=== PATIENT | male | born 1990 | race African-American/Black ===

== ENCOUNTER 2023-08-08 09:36 | Emergency (ER) | payer OTHER, SELFPAY ==
--- NOTE | 2023-08-08 09:38 | ED.GENMED ---
History of Present Illness
General
Chief Complaint: Psychiatric Problem
Time Seen by Provider: 08/08/23 09:38
History of Present Illness
History of Present Illness:
HPI: Patient presents to the ER with police. He resides at an apartment complex. He presents under 302 evaluation by psychiatrist. The note reads that he has not showered in approximately 2 years and has become very malodorous. The patient
denies any significant symptoms. The patient tells me that he showered a few weeks ago and uses the sink to wash himself a few times a week.
EXAM:
GENERAL: The patient appears somewhat poorly groomed, very long fingernails noted
HEENT: Moist oral mucosa
CARDIOVASCULAR: No murmurs, normal heart rate and rhythm, No chest wall tenderness
PULMONARY: No respiratory distress, breath sounds are clear and equal
ABDOMEN: Soft with no peritoneal signs, no tenderness
NEUROLOGIC: Excellent strength all extremities, no coordination deficits
PSYCHIATRIC: He knows the month and knows he is at [facility] but otherwise has somewhat limited insight and does not quite understand why he is here
EXTREMITIES: Nontender, no edema, moves all extremities equally
SKIN: No rash, no lesions
ED COURSE:
9:45 AM: I initially evaluated
NUMBER AND COMPLEXITY OF PROBLEMS ADDRESSED AT THE ENCOUNTER
� Chronic conditions affecting care: Schizophrenia on lithium
� Acute Exacerbation and/or Progression of Chronic Illness: The timing of this is unclear
� Differential Diagnosis includes: Failure to thrive, dehydration, medication noncompliance, schizophrenia
AMOUNT AND/OR COMPLEXITY OF DATA TO BE REVIEWED AND ANALYZED
� I performed an independent evaluation of and my interpretation is:
EKG:
CT:
X-rays:
Laboratory Studies: CBC normal, chemistries unremarkable, GFR over 60, B12, folate, TSH all normal, lithium level low at 0.4
Other:
� Review of other/old records: I reviewed notes from the facility which indicate the patient was homeless
� Clinical information was obtained by an independent historian: I spoke to police and reviewed the 302
� Prescriptions/Medications Considered but not given:
� Further testing considered but not performed:
RISK OF COMPLICATIONS AND/OR MORBIDITY OR MORTALITY OF PATIENT MANAGEMENT
� Social determinants of health affecting care: Lives at [facility]
� Discussion with other providers: I spoke to Dr. Paiz who ordered labs, planning discharge
� Escalation of care including admission/observation vs risk of discharge considered: The patient is fairly well-appearing with unremarkable vital signs and labs, he does not appear to be a imminent threat to himself or others.
There has been delay in disposition as Dr. Paiz wanted patient to further paperwork allowing further care at the facility that he is at. Still awaiting either Dr. Paiz or crisis to assist with this.
Phy Exam
Physical Exam
Physical Exam:
See HPI
Course
Orders/Labs/Results
Orders:
Orders
08/08/23 10:39
Complete Blood Count/With Diff Urgent
Comprehensive Metabolic Panel Urgent
Folate Urgent
[place] Urgent
TSH Reflex To Free T4 Urgent
Vitamin B12 Urgent
Abnormal Lab Results
08/08/23
10:39
BUN 5 L mg/dl
(9-20)
[place] 0.4 L mmol/L
(0.6-1.2)
08/08/23 10:39
08/08/23 10:39
Vital Signs
Initial and Last Documented VS:
Initial Vital Signs
Pulse Resp BP Pulse Ox
68 18 130/96 96
08/08/23 09:59 08/08/23 09:59 08/08/23 09:59 08/08/23 09:59
Last Documented Vital Signs
Pulse Resp BP Pulse Ox
68 18 130/96 96
08/08/23 09:59 08/08/23 09:59 08/08/23 09:59 08/08/23 09:59
*Critical Care Note
Total Time (30-74mins, 75-104mins- exclusive of procedures): Not Applicable
ED Attending Note
-
Portions of this chart may have been created with voice recognition software.� Occasional wrong word or��sound alike� substitutions may have occurred due to the inherent limitations of voice recognition software.
Discharge Plan
Departure
Patient Disposition: Home (Routine Discharge)
Date of Disposition: 08/08/23
Time of Disposition: 12:21
Patient with high blood pressure during this ER visit?: Yes
Discharge Problem:
Adult failure to thrive
Instructions: Schizophrenia (DC)
Referrals:
UNKNOWN,NO INTERVIEW [Family Provider] -
Activity Restrictions/Additional Instructions:
Follow-up as recommended by [facility]/psychiatry
Interventions
Interventions:
*Risk Screen - Suicide Last Done: 08/08/23 10:03
*General Assessment Last Done: 08/08/23 10:03
*Neglect/Abuse Screening Last Done: 08/08/23 10:03
ED- Fall Risk Assessment Last Done: 08/08/23 10:03
*ED COVID-19 Vaccine History Last Done: 08/08/23 10:03
*Nursing Disposition Last Done: 08/08/23 15:30
ED-Psychological Assessment Last Done: 08/08/23 15:31
Discharge Date and Time
Discharge Date/Time: 08/08/23 15:31
[2023-08-08 09:59] VITALS: BP 130/96
[2023-08-08 10:53] LABS: % Basophils 1.2 % (0-2); % Eosinophils 1.9 % (0-6); % Immature Granulocytes 0.2 % (0-0.5); % Lymphocytes 23.9 % (20.5-51.1); % Monocytes 4.4 % (1.7-9.3); % Neutrophils 68.4 % (42.2-75.2); Absolute Basophils 0.1 10^3/uL (0-0.2); Absolute Eosinophils 0.1 10^3/uL (0-0.7); Absolute Lymphocytes 1.2 10^3/uL (1.2-3.4); Absolute Monocytes 0.2 10^3/uL (0.1-0.6); Absolute Neutrophils 3.5 10^3/uL (1.4-6.5); Hemoglobin 16.2 g/dL (13.0-18.0); Mean Corp Hgb Conc. 33.8 g/dL (33.0-37.0); Mean Corpuscular Hgb 28.4 pg (27.0-31.0); Mean Corpuscular Volume 84.1 fL (80.0-94.0); Nucleated Red Blood Cells % 0 % (-); Platelet Count 274 10^3/uL (130-400); Red Blood Cell Count 5.71 10^6/uL (4.70-6.10); White Blood Cell Count 5.2 10^3/uL (4.8-10.8)
[2023-08-08 11:03] LABS: ALT (SGPT) 13 U/L (0-50); AST (SGOT) 23 U/L (17-59); Albumin 4.7 g/dl (3.5-5.0); Alkaline Phosphatase 75 U/L (38-126); Blood Urea Nitrogen 5 mg/dl (9-20); Carbon Dioxide 30 mmol/L (22-30); Chloride 103 mmol/L (98-107); Glucose 94 mg/dl (70-99); Lithium 0.4 mmol/L (0.6-1.2); Potassium 4.6 mmol/L (3.5-5.1); Sodium 138 mmol/L (135-145); Total Protein 7.7 g/dl (6.3-8.2); eGFR > 60.00
--- NOTE | 2023-08-08 11:11 | CON.MD ---
Consultation - Medical
-
patient seen chart reviewed. this case was discussed with nursing and with dr vargas. the patient is a 33 year old who resides in a [facility] appartment. his meds are prescribed by the [facility] act team and he reportedly takes lithium and zyprexa.
i am awaiting a list of his current meds and doses. i did speak to ms axel dale who oversees the [facility]. apparently there is some disagreement as to how to handle monica's case. lvf feel a guardian is necessary as monica needs a higher
level of care with more supervision in his living arrangement but he is not willing to sign for it. they also feel that coordination of his care would be helpful (meaning [facility] act prescribing as he lives in [facility] housing). they do not necessarily
agree that hospital is advised. the 302 alleges he is not performing adls and that body odor is offending residents and staff alike. not showering 'for two years' not cutting finger nails for two years. 'very thin' not willing to do medical
care. eating ' food' bedroom trashed. cig smoking is a fire hazard and he has disabled smoke detectors does not participate in programming and refuses to sign documents. he allowed us to do bloodwork which is perfect so far b12 and
folate pending. he is not malnourished. lithium level is 0.4 will be obtaining height and weight. monica was pleasant and cooperative in this interview. he gives no reason for not showering. he says he does eat although acknowledges he has lost
some weight but also says he was overweight in the past. he is not suicidal. he did not appear to be hallucinating. he did not threaten others. he said he takes lithium and olanzapine though did not know dosages.
past psych hx monica has been hospitalized in the past. he remembers being in a hospital in [place] and at [facility]. see above re current rx inquired of [facility] staff what is IQ they suspect borderline intellect but no documentation
medical labs all wnl. will get height and weight. awaiting list of meds. he denies ongoing medical illnesses.
social resides in [facility] housing. he does have family in [place]
mse alert ox3 cooperative pleasant. disheveled. i could not detect an odor but other staff have. his fingernails are long but not curling . thought process seemed goal oriented but patient was not very talkative speech nl rate and tone. denies
hallucinations intelligence may be borderline insight judgment lacking
dx schizophrenia
recommendations i did try to call dr lindo at [phone] but got only voice mail. while i acknowledge patient needs to improve adls and requires more supervision for safety eg smoking is a fire risk i cannot say he is an imminent danger to self
and others and i don't really see what a hospitalization would accomplish as long as he is taking meds. he seems to me to be what we would have called in the past chronic undifferentiated schizophrenia. i think he would be better served in a higher
level of care reliving situation. crr and under [facility] prescribing since he lives in [facility] housing. i will not uphold the 302. will see if we can get him to sign some paperwork that would be needed to achieve aforementioned goals.
[2023-08-08 11:35] LABS: TSH Reflex To Free T4 1.07 uIU/ml (0.47-4.68)
[2023-08-08 11:37] VITALS: BMI 22.3
[2023-08-08 12:08] LABS: Folate 9.5 ng/ml (2.76-20); Vitamin B12 381 pg/ml (239-931)
--- NOTE | 2023-08-08 12:36 | PTCARENOTE ---
pt ordered lunch, pt is calm will continue to monitor.
== END 2023-08-08 15:31 | disposition home or self-care (01) ==
LOC: EMR 09:36
PROVIDERS: EMERGENCY PHYSICIAN Emergency Medicine; OTHER PHYSICIAN Psychiatry & Neurology Psychiatry
DX: R62.7 Adult failure to thrive (principal); F20.9 Schizophrenia, unspecified; Z79.899 Other long term (current) drug therapy
CPT/HCPCS: 99284; 80053; 80178; 82607; 82746; 84443; 85025

== ENCOUNTER 2024-09-04 23:54 | Inpatient (IN) | payer OTHER, SELFPAY ==
[2024-09-04 20:36] VITALS: BP 136/74
[2024-09-04] MEDS: NSS 1000 IV ×3 (20:36→23:33)
[2024-09-04 20:40] VITALS: BP 136/74
--- NOTE | 2024-09-04 20:47 | ED.GENMED ---
History of Present Illness
General
Chief Complaint: Unresponsive
Source: ambulance crew
Exam Limitations: altered mental status
Time Seen by Provider: 09/04/24 20:36
Nursing documentation reviewed up to this point in time: agreed with
History of Present Illness
History of Present Illness:
34-year-old male from a senior care presents with mental status change, apparently he does not shower very often, reluctant to take his meds, his special education supervisor at the facility states there is no drug or alcohol history, apparently refused to take his
lithium and Seroquel for 2 days but did take them this evening, no overdose reportedly, EMS reports him being being somnolent tachycardic with small pupils given Narcan with some improvement of his mental status, when I saw him he is tachycardic 2
to 3 mm OU no overt signs of trauma felt warm had a rectal temp was normal very malodorous,
Past History
Past History
ED Past Medical History: Psychiatric
Social History
Tobacco: Non-smoker
Alcohol: None
Drug: None
Personal: Single
Living: other
Employment: Other
Family History
Family History: Unable to obtain
Phy Exam
Physical Exam
Physical Exam:
Physical Exam
General: Minimally responsive malodorous -[place]
Neck: Pupils 3 mm OU
Heart: Tachycardic
Lungs: no acute respiratory distress. clear bilaterally
Abdomen: Nontender
Neuro: Responds to deep painful stimuli
Skin: no rash
Psychiatric: Unable to assess
Extremities: no edema
Course
Orders/Labs/Results
Orders:
Orders
09/04/24 20:36
EKG [Electrocardiogram (*1)] Urgent
Reason for Study: Tachycardia
Electrocardiogram (*1) Urgent
Reason for Study: Other
Other Reason for Exam: sepsis
EKG- Treatment ONCE
EKG- Treatment ONCE
Urinalysis Reflex To Culture Urgent
0.9% Sodium Chloride 1000 ml [Nss] 1,000 ml IV BOLUS
CR Chest Portable - 1 View Urgent
Comment:
Reason For Exam: stupor
Reason Study Needs to be Portable: Patient Unstable
09/04/24 20:37
Urine Drug Abuse Screen Urgent
09/04/24 20:38
CT Head W/o Iv Contrast Urgent
Comment:
Reason For Exam: coma
09/04/24 20:46
Add On- LAB Urgent
Tests Added?: [place]
09/04/24 20:55
Acetaminophen Urgent
Alcohol Urgent
COVID-19 Antigen Urgent
Source: Nasal Swab
CPK [Creatine Phosphokinase] Urgent
Complete Blood Count/With Diff Urgent
Comprehensive Metabolic Panel Urgent
Glycohemoglobin (HgbA1c) Urgent
Lactic Acid Q4H
Comment: CANCEL 2nd LACTIC ACID IF 1st LACTIC ACID IS LESS THAN 2
[place] Urgent
Comment: ADD ON
Salicylate Urgent
Influenza A+B Rapid Molecular Urgent
GISSELLE Source: Nasal Swab
Specimen Description:
09/04/24 21:01
Blood Culture Q30M
GISSELLE Source: Blood/Venous
Specimen Description:
Blood Culture Q30M
GISSELLE Source: Blood/Venous
Specimen Description:
09/04/24 21:31
0.9% Sodium Chloride 1000 ml [Nss] 1,000 ml IV BOLUS
09/04/24 21:32
0.9% Sodium Chloride 1000 ml [Nss] 1,000 ml IV BOLUS
KCl 40 Meq/100 ml [KCl] 40 meq in 100 ml IV NOW
09/04/24 21:48
Add On- LAB Urgent
Tests Added?: hemoglobin aic
09/04/24 21:59
Arterial Blood Gas Urgent
%Oxygen/Room Air: ra
09/05/24 00:45
Lactic Acid Q4H
Comment: CANCEL 2nd LACTIC ACID IF 1st LACTIC ACID IS LESS THAN 2
Abnormal Lab Results
09/04/24
20:55
Absolute Neuts (auto) 7.2 H 10^3/uL
(1.4-6.5)
Absolute Monos (auto) 0.7 H 10^3/uL
(0.1-0.6)
Neutrophils % 77.4 H %
(42.2-75.2)
Lymphocytes % 14.5 L %
(20.5-51.1)
Sodium 133 L mmol/L
(135-145)
Potassium 3.0 L mmol/L
(3.5-5.1)
Glucose 254 H mg/dl
(70-99)
Lactic Acid 2.8 H mmol/L
(0.7-2.0)
Creatine Kinase 260 H U/L
(55-170)
Salicylates < 1.0 L mg/dl
(2.0-20.0)
Acetaminophen < 10 L ug/ml
(10-30)
[place] 0.4 L mmol/L
(0.6-1.2)
09/04/24 20:55
09/04/24 20:55
Vital Signs
Initial and Last Documented VS:
Initial Vital Signs
Pulse Resp Pulse Ox
158 22 97
09/04/24 20:32 09/04/24 20:32 09/04/24 20:32
Last Documented Vital Signs
Temp Pulse Resp BP Pulse Ox
98.3 F 116 15 162/86 98
09/04/24 20:40 09/04/24 21:30 09/04/24 21:30 09/04/24 21:00 09/04/24 21:30
MDM/Problems Addressed
Differential Diagnosis Includes:
Overdose intoxication infection primary psychiatric dehydration thyroid
MDM/Problems Addressed:
Mental status change
Chronic conditions affecting care: Psychiatric illness
Acute Exacerbation and/or Progression of Chronic Illness: Psychiatric illness
*Radiology
Radiology exam reviewed: preliminary read by ED provider
*Pulse Oximetry
Patient hypoxic: no
*EKG
Interpreted by ED Provider?: Yes
Interpretation: abnormal
Comparison EKG: no comparison EKG present
Heart Rate: 150
Rate: tachycardiac
Rhythm: sinus
Ischemia: non-specific ST changes
*Audio Visual Secretary Interpretation
Rate: tachycardiac
Interpretation: abnormal
Heart Rate: 150
Rhythm: sinus
*Critical Care Note
Total Time (30-74mins, 75-104mins- exclusive of procedures): 30
ED Attending Note
-
Portions of this chart may have been created with voice recognition software.� Occasional wrong word or��sound alike� substitutions may have occurred due to the inherent limitations of voice recognition software.
Discharge Plan
Departure
Prescriptions:
No Action
quetiapine 300 mg tablet
300 mg PO BID
olanzapine 10 mg tablet
10 mg PO DAILY
lithium carbonate 450 mg tablet extended release
450 mg PO DAILY
Interventions
Interventions:
*Risk Screen - Suicide Last Done: 09/04/24 20:46
*General Assessment Last Done: 09/04/24 20:49
*Neglect/Abuse Screening Last Done: 09/04/24 20:46
*ED- Fall Risk Assessment Last Done: 09/04/24 20:46
*ED COVID-19 Vaccine History Last Done: 09/04/24 20:46
ED- Neurological Assessment Last Done: 09/04/24 20:46
Discharge Date and Time
Print Language: AZERBAIJANI
[2024-09-04 21:00] VITALS: BP 162/86
[2024-09-04 21:10] LABS: % Basophils 0.5 % (0-2); % Eosinophils 0.1 % (0-6); % Immature Granulocytes 0.3 % (0-0.5); % Lymphocytes 14.5 % (20.5-51.1); % Monocytes 7.2 % (1.7-9.3); % Neutrophils 77.4 % (42.2-75.2); Absolute Basophils 0.1 10^3/uL (0-0.2); Absolute Lymphocytes 1.3 10^3/uL (1.2-3.4); Absolute Monocytes 0.7 10^3/uL (0.1-0.6); Absolute Neutrophils 7.2 10^3/uL (1.4-6.5); Hematocrit 44.5 % (39.0-52.0); Hemoglobin 15.2 g/dL (13.0-18.0); Mean Corp Hgb Conc. 34.2 g/dL (33.0-37.0); Mean Corpuscular Hgb 28.5 pg (27.0-31.0); Mean Corpuscular Volume 83.5 fL (80.0-94.0); Mean Platelet Volume 10.4 fL (7.4-10.4); Nucleated Red Blood Cells % 0 % (-); Platelet Count 255 10^3/uL (130-400); Red Blood Cell Count 5.33 10^6/uL (4.70-6.10); Red Cell Dist. Width 12.9 % (11.5-14.5); White Blood Cell Count 9.3 10^3/uL (4.8-10.8)
[2024-09-04 21:19] LABS: COVID-19 Antigen Negative (Negative)
[2024-09-04 21:25] LABS: ALT (SGPT) 14 U/L (0-50); AST (SGOT) 19 U/L (17-59); Acetaminophen < 10 ug/ml (10-30); Alkaline Phosphatase 79 U/L (38-126); Blood Urea Nitrogen 10 mg/dl (9-20); Calcium 9.3 mg/dl (8.4-10.2); Carbon Dioxide 22 mmol/L (22-30); Chloride 98 mmol/L (98-107); Creatine Phosphokinase 260 U/L (55-170); Glucose 254 mg/dl (70-99); Lactic Acid 2.8 mmol/L (0.7-2.0); Lithium 0.4 mmol/L (0.6-1.2); Salicylate < 1.0 mg/dl (2.0-20.0); Sodium 133 mmol/L (135-145); Total Bilirubin 0.9 mg/dl (0.2-1.3); Total Protein 6.5 g/dl (6.3-8.2); eGFR > 60.00
[2024-09-04 21:27] LABS: Alcohol None Detected
[2024-09-04 22:00] VITALS: BP 138/92
--- NOTE | 2024-09-04 22:28 | ED.GENMED ---
History of Present Illness
General
Chief Complaint: Unresponsive
Time Seen by Provider: 09/04/24 20:36
Past History
Past History
ED Past Medical History: Psychiatric
Social History
Tobacco: Non-smoker
Alcohol: None
Drug: None
Personal: Single
Living: other
Employment: Other
Family History
Family History: Unable to obtain
Course
Orders/Labs/Results
Orders:
Orders
09/04/24 20:36
EKG [Electrocardiogram (*1)] Urgent
Reason for Study: Tachycardia
Electrocardiogram (*1) Urgent
Reason for Study: Other
Other Reason for Exam: sepsis
EKG- Treatment ONCE
EKG- Treatment ONCE
Urinalysis Reflex To Culture Urgent
0.9% Sodium Chloride 1000 ml [Nss] 1,000 ml IV BOLUS
CR Chest Portable - 1 View Urgent
Comment:
Reason For Exam: stupor
Reason Study Needs to be Portable: Patient Unstable
09/04/24 20:37
Urine Drug Abuse Screen Urgent
09/04/24 20:38
CT Head W/o Iv Contrast Urgent
Comment:
Reason For Exam: coma
09/04/24 20:46
Add On- LAB Urgent
Tests Added?: [place]
09/04/24 20:55
Acetaminophen Urgent
Alcohol Urgent
COVID-19 Antigen Urgent
Source: Nasal Swab
CPK [Creatine Phosphokinase] Urgent
Complete Blood Count/With Diff Urgent
Comprehensive Metabolic Panel Urgent
Glycohemoglobin (HgbA1c) Urgent
Lactic Acid Q4H
Comment: CANCEL 2nd LACTIC ACID IF 1st LACTIC ACID IS LESS THAN 2
[place] Urgent
Comment: ADD ON
Salicylate Urgent
Influenza A+B Rapid Molecular Urgent
GISSELLE Source: Nasal Swab
Specimen Description:
09/04/24 21:01
Blood Culture Q30M
GISSELLE Source: Blood/Venous
Specimen Description:
Blood Culture Q30M
GISSELLE Source: Blood/Venous
Specimen Description:
09/04/24 21:31
0.9% Sodium Chloride 1000 ml [Nss] 1,000 ml IV BOLUS
09/04/24 21:32
0.9% Sodium Chloride 1000 ml [Nss] 1,000 ml IV BOLUS
KCl 40 Meq/100 ml [KCl] 40 meq in 100 ml IV NOW
09/04/24 21:48
Add On- LAB Urgent
Tests Added?: hemoglobin aic
09/05/24 00:45
Lactic Acid Q4H
Comment: CANCEL 2nd LACTIC ACID IF 1st LACTIC ACID IS LESS THAN 2
Abnormal Lab Results
09/04/24
20:55
Absolute Neuts (auto) 7.2 H 10^3/uL
(1.4-6.5)
Absolute Monos (auto) 0.7 H 10^3/uL
(0.1-0.6)
Neutrophils % 77.4 H %
(42.2-75.2)
Lymphocytes % 14.5 L %
(20.5-51.1)
Sodium 133 L mmol/L
(135-145)
Potassium 3.0 L mmol/L
(3.5-5.1)
Glucose 254 H mg/dl
(70-99)
Lactic Acid 2.8 H mmol/L
(0.7-2.0)
Creatine Kinase 260 H U/L
(55-170)
Salicylates < 1.0 L mg/dl
(2.0-20.0)
Acetaminophen < 10 L ug/ml
(10-30)
[place] 0.4 L mmol/L
(0.6-1.2)
09/04/24 20:55
09/04/24 20:55
Vital Signs
Initial and Last Documented VS:
Initial Vital Signs
Pulse Resp Pulse Ox
158 22 97
09/04/24 20:32 09/04/24 20:32 09/04/24 20:32
Last Documented Vital Signs
Temp Pulse Resp BP Pulse Ox
98.3 F 98 14 138/92 99
09/04/24 20:40 09/04/24 22:15 09/04/24 22:15 09/04/24 22:00 09/04/24 22:15
Update Note
Update Note:
10:20 PM patient still sleepy arouses to attempted ABG, moves all extremities
ED Attending Note
-
Portions of this chart may have been created with voice recognition software.� Occasional wrong word or��sound alike� substitutions may have occurred due to the inherent limitations of voice recognition software.
Discharge Plan
Departure
Patient Disposition: Admit
Date of Disposition: 09/04/24
Time of Disposition: 22:29
Admit to: Med/Surg and Telemetry
Presentation/result/management discussed w/ accepting MD/DO: Hospitalist
Patient with high blood pressure during this ER visit?: No
Condition: Fair
Covid-19: Not Applicable
Discharge Problem:
Acute delirium
Prescriptions:
No Action
quetiapine 300 mg tablet
300 mg PO BID
olanzapine 10 mg tablet
10 mg PO DAILY
lithium carbonate 450 mg tablet extended release
450 mg PO DAILY
Interventions
Interventions:
*Risk Screen - Suicide Last Done: 09/04/24 20:46
*General Assessment Last Done: 09/04/24 20:49
*Neglect/Abuse Screening Last Done: 09/04/24 20:46
*ED- Fall Risk Assessment Last Done: 09/04/24 20:46
*ED COVID-19 Vaccine History Last Done: 09/04/24 20:46
ED- Neurological Assessment Last Done: 09/04/24 20:46
Discharge Date and Time
Print Language: KHMER
[2024-09-04 23:00] VITALS: BP 137/85
--- NOTE | 2024-09-04 23:03 | HPS.HSE ---
Family Physician
-
Family Physician:
Chief Complaint
-
encephalopathy
History of Present Illness
34-year-old male with past medical history signal for bipolar disorder on lithium, Seroquel and olanzapine will presents from home via family with altered mental status.
Patient is arousable but unable to provide any history. He currently lives in a correction with a he apparently is usually by himself. It is noted that he does not shower very often, he is reluctant to take his medications, there is no history of
drug or alcohol use according to facilities about myself. He apparently has been refusing to take his lithium and Seroquel for 2 days but apparently took them this evening. No overdose noted.
EMS reports that he was somnolent and tachycardic on arrival with constricted pupils. He was given Narcan with some improvement in mental status. No other history obtainable.
In ED he was tachycardic to the 130s. Blood pressure was 138/92. Was satting 99% on room air. His chest x-ray was clear. CT of the head showed no acute intracranial process. CBC was unremarkable. Electrolytes notable for a potassium of 3.0 but
otherwise unremarkable. Glucose 250. He had elevated lactic acid to 2.8, CK was elevated to 280.
Drug screen for salicylate acetaminophen and alcohol was negative. [place] level was not therapeutic.
Urine tox is not available at this time.
Medical History
Past Medical History
Past Medical History: Reports Other (Bipolar disorder)
Past Surgical History: Reports None
Social History
Unable to obtain full social history at this time due to: Patient Non-verbal
Family History
Family History: Not pertinent
Allergies / Home Medications
Allergies reflects when Allergies were last updated in [employer].
Home Medications with original date entered in [employer]
Allergy/Medication List:
Allergies
Allergy/AdvReac Type Severity Reaction Status Date / Time
No Known Allergies Allergy Unverified 02/16/24 11:34
Home Medications
lithium carbonate 450 mg tablet,extended release 450 mg PO DAILY 09/04/24
olanzapine 10 mg tablet 10 mg PO DAILY 09/04/24
quetiapine 300 mg tablet 300 mg PO BID 09/04/24
Review of Systems
-
Unable to obtain full review of systems at this time due to: Patient Non-verbal
Physical Exam
Vital Signs
Vital Signs
Temp Pulse Resp BP Pulse Ox
98.3 F 98 14 138/92 99
09/04/24 20:40 09/04/24 22:15 09/04/24 22:15 09/04/24 22:00 09/04/24 22:15
Physical Exam
General: No Apparent Distress
HEENT: NormoCephalic, Anicteric, Moist mucous membranes, Atraumatic, No Ptosis, Nose Appears Normal, Ears Appear Normal and Neck Nontender; No Pharyngeal Erythema or Neck Mass
Respiratory: Clear
Cardiac: S1/S2 and Tachycardia
Breast: Deferred by me
GI: Soft, Non Tender, Non Distended and Normal Bowel Sounds
Rectal: Deferred by Provider
Genito-urinary: No costovertebral tender
Musculoskeletal: No Clubbing, No Cyanosis and No Edema
Skin: Warm
Neuro: Other (somnolent, arousable to loud sound or to touch then immediately goes back to sleep. GCS = 9. Can keep limbs elevated if raised. Seemed to have some tetany on movement.)
Laboratory Results
-
09/04/24 20:55
09/04/24 20:55
Laboratory Results
pH Cancelled 09/04/24 21:59
pCO2 Cancelled 09/04/24 21:59
pO2 Cancelled 09/04/24 21:59
HCO3 Cancelled 09/04/24 21:59
Lactic Acid 2.8 mmol/L (0.7-2.0) H 09/04/24 20:55
Total Bilirubin 0.9 mg/dl (0.2-1.3) 09/04/24 20:55
AST 19 U/L (17-59) 09/04/24 20:55
ALT 14 U/L (0-50) 09/04/24 20:55
Alkaline Phosphatase 79 U/L (38-126) 09/04/24 20:55
Data Reviewed
-
Diagnostic Radiology: Image Personally Visualized and interpreted
CT Scan: Report Reviewed by me
Medical Tests (Nuc Med, Echo, EKG etc): Image Personally Visualized and interpreted
Old Records: Reviewed
Impression/Plan
-
IMPRESSION:
34 y.o with h/o bipolar d/o comes from correction with altered mental status and tachycardia. No history obtained from patient. Per correction stopped taking medications for the last 2 days and history of reluctance to take meds or perform ADLs.
No h/o drug abuse and per supervisor phosphatic fertilizer no etoh history. Drug leves are non-toxic here and no etoh in system. CT head negative. Chest clear. Viral panel negative. Hypo K and hyponatremia with elevated lactic acid levels.
PLAN:
1. Obtundation - Patient is protecting airways and has good gag reflex. Easily aroused to voice and touch. RR 16. Normal oxygenation. Negative serum drug screen. Unlikely post-ictal but cannot rule out (elevated lactate and cpk) vs
non-convulsive epilepsy
- admit to imu
- continue monitoring on tele with continuos pulse oximetry and capnography
- urine drug screen
- check d-dimer
- mri and eeg in am
- checking tsh, b12,
- neurology consultation
2. Electrolyte abnormalities- Suspect secondary to dehydration.
- s/p K repletion
- continue with IV thiamine/folate/NS
3. Hyperglycemia
- a1c pending
- check lipid panel
- sliding scale insulin for now
DVT PPX - lovenox sq
Code status - Full code
[2024-09-04] MEDS: KCL 270 MEQ IV (23:30)
[2024-09-05] VITALS (11 sets, daily range): BP systolic 78–164; BP diastolic 31–119; BMI 19.9
[2024-09-05] LABS: Urine Albumin Negative (Neg - Trace); Urine Bilirubin Negative (Negative); Urine Character Clear (Clear); Urine Color Yellow; Urine Glucose 2+ (Negative); Urine Ketone 1+ (Negative); Urine Leukocyte Negative (Negative); Urine Nitrite Negative (Negative); Urine Occult Blood Negative (Negative); Urine Specific Gravity 1.015 (<1.030); Urine Urobilinogen Negative (Neg - 1+)
[2024-09-05 00:09] LABS: D-Dimer 0.36 ug/mlFEU (0.00-0.50)
[2024-09-05 00:42] LABS: Amphetamines Negative (Negative); Barbiturates Negative (Negative); Benzodiazepines Negative (Negative); Buprenorphine Negative (Negative); Cocaine Negative (Negative); Marijuana Negative (Negative); Methadone Negative (Negative); Methamphetamines Negative (Negative); Opiates Negative (Negative); Phencyclidine Negative (Negative); Tricyclic Antidepressants Positive (Negative)
[2024-09-05 01:16] LABS: Lactic Acid 1.1 mmol/L (0.7-2.0)
[2024-09-05] MEDS: MULTIVITAMIN 1011 MG IV (01:24)
[2024-09-05] MEDS: MULTIVITAMIN 1011 ML IV (01:24)
[2024-09-05 02:45] LABS: Glucose - Point of Care 101 mg/dl (70-99)
[2024-09-05] MEDS: KCL 160 MEQ IV (02:51)
[2024-09-05 05:46] LABS: Glucose - Point of Care 121 mg/dl (70-99)
--- NOTE | 2024-09-05 06:08 | PTCARENOTE ---
Received pt from ED RN. Pt nods his head yes/no to some questions, nonverbal at this time. Unable to do admission questions. NSR on the monitor. On RA O2 sat 99%, lungs clear. Unable to assess pt feet, pt becomes restless/agitated when feet are
touched. Pt went tachy into the 140s, RR 60s, restless, then had a blank stare for a couple of seconds and VS stabilized, RADHA Butler notified. CHG bath provided. 1:1 at bedside. Safe environment maintained.
[2024-09-05 06:51] LABS: Hematocrit 43.9 % (39.0-52.0); Hemoglobin 14.7 g/dL (13.0-18.0); Mean Corp Hgb Conc. 33.5 g/dL (33.0-37.0); Mean Corpuscular Hgb 28.4 pg (27.0-31.0); Mean Corpuscular Volume 84.9 fL (80.0-94.0); Mean Platelet Volume 10.3 fL (7.4-10.4); Platelet Count 253 10^3/uL (130-400); Red Blood Cell Count 5.17 10^6/uL (4.70-6.10); White Blood Cell Count 7.2 10^3/uL (4.8-10.8)
[2024-09-05 06:58] LABS: Ammonia 14 umol/L (9-30)
[2024-09-05 07:06] LABS: Blood Urea Nitrogen 4 mg/dl (9-20); Calcium 9.3 mg/dl (8.4-10.2); Chloride 108 mmol/L (98-107); Creatine Phosphokinase 1362 U/L (55-170); Estimated Creatinine Clearance > 125 ml/min; Glucose 96 mg/dl (70-99); HDL Cholesterol 50 mg/dl; Magnesium 2.1 mg/dl (1.6-2.3); Potassium 3.7 mmol/L (3.5-5.1); Sodium 140 mmol/L (135-145); Triglyceride 58 mg/dl (10-149); Very Low Density Lipoprotein 11 mg/dl (0-30); eGFR > 60.00
[2024-09-05 07:13] LABS: Carbon Dioxide 23 mmol/L (22-30)
[2024-09-05 07:22] LABS: LDL Cholesterol, Calculated 37 mg/dl; Total Cholesterol 98 mg/dl (50-199)
[2024-09-05 07:35] LABS: TSH 2.11 uIU/ml (0.47-4.68)
[2024-09-05 07:54] LABS: Vitamin B12 290 pg/ml (239-931)
[2024-09-05 08:20] LABS: Glycohemoglobin (HgbA1c) 5.5 % (4.0-5.6)
--- NOTE | 2024-09-05 10:08 | CM ---
Addendum entered by Cassi Savage 09/05/24 14:35:
CM spoke with Dr. Ferrell and Dr. Mosquera, new 302 completed and delegate provided time of warrant as 2:05pm. CM will need to fax updated 302 for hearing if needed on Friday, hearing request must be in before . Original to chart and copy in
CM office. CM will continue to follow for discharge planning needs.
Addendum entered by Cassi Savage 09/05/24 11:35:
CM updated Yasmine Bunch that patient was OBS at this time, and reviewed implications.
Addendum entered by Cassi Savage 09/05/24 11:20:
CM received a call back from it network administrator Yasmine Bunch,of act at [facility] [phone]. Per it network administrator patient had a 302 started yesterday and it was upheld by the delegate but when patient reached the medical floor the 302 was discharged.
Patient has been in the apartment since his release from the [facility] and he has not bathed in 3 years per it network administrator. Patient needs higher level of care per admin. Patient may have an ID but has never been tested due to psychosis. Patient
has a sister who has not given a release to [facility] and admin was not able to release name/phone number. Per admin sister has not been involved with patient care for a long time. Patient typically was eating only pizza and hot dogs from [employer] and
he would ride his bike to the store. Since 08/17/24 patient has not opened his door to see the staff or allowed them to give him his medicine. According to admin when the curtain supervisor arrived last night with the 302 he did open the door and took his
medicine, after which he was almost immediately sick and the staff called 911. Patient is very afraid of police and admin indicated that patient is very frail. Admin to come to see patient tomorrow in am and will come to the CM office to review
options. CM will update curtain supervisor and continue to follow for discharge planning needs.
Original Note:
Patient seen at bedside. Patient not answering CM questions. CM called to home phone number. Person answering phone indicated that they were caregivers for 12 hours daily and that ms. Fiorella Dexter is the curtain supervisor and they work for [facility], [place] # [phone]. Patient PCP is not known by the caregiver but she stated that [facility] is the pharmacy [phone]. Patient caregiver states that patient is normally talkative and able to communicate his needs. Patient does like his
'space' per caregiver. Patient has a POA and caregiver but the information would be available from Ms. Dexter. CM will leave a VM for curtain supervisor and request call back. CM will attempt to update curtain supervisor of patient status as OBS. CM will continue
to follow for discharge planning needs.
Plan; home with aides/VN vs SNF; watch for clarification of patient prior status and needs.
--- NOTE | 2024-09-05 10:14 | CS.PSYCHR ---
Addendum entered and electronically signed by Indu Smith DO 09/05/24 11:53:
Chart reviewed and case discussed with crisis. Evidently the 302 petition completed by facility director was denied by ER physician. mold worker will contact delegate at office of mental health to identify process to reinstitute the 302.
Original Note:
Consult Summary - Psychiatry
-
Psychiatry consult for altered mental status. 34yo male with history of bipolar disorder admitted yesterday for altered mental status. Psych medications listed below are being held. On exam patient is awake, lying in bed staring straight ahead, and
not answering any of my questions.
MSE- lying in bed staring forward and selectively mute. Left hand pill rolling tremor noted. Guarded, uncooperative with questions. Appears internally preoccupied.
I spoke to staff at [facility] where he was living who state that patient is typically guarded and keeps to himself but does answer questions appropriately. Per director, patient has not showered in 3 years an does not allow anyone into his room
to clean it. She states he has not taken medications since Aug 18 up until yesterday when he chewed them and took them on an empty stomach and then presented with altered mental status/feeling unwell. A 302 was petitioned and approved last night
for inability to care for self in context of mental illness
[place] 0.4 on admission
B12/TSH WNL
CK increased from 260 to 1362 from yesterday today. creatinine 0.[address] head negative
Past psych- history of bipolar disorder prescribed lithium ER 450mg daily, seroquel 300mg BID and olanzapine 10m daily; long history of schizophrenia. ACT services at [facility]
Social- has been living at [facility] with LVF; described by staff as uncooperative with engagement in the community; did hold up a 12/31 with a BB gun when unmedicated but no recent concerns
D&A- facility denies; UDS positive for tricyclics; alcohol negative on admission
A/P- 34 yo male with schizophrenia, not compliant with medications and decompensated. Will contact ACT team prescriber at [facility] and formulate plan for restart of medications here today. Agree with plan for inpatient psychiatric admission on a 302 for
inability to care for self when medically stable. Continue 1:1 for safety. Psychiatry will follow.
--- NOTE | 2024-09-05 10:18 | CON.NEURO ---
Neuro Assessment/Plan
Assessment
symptoms appear behavioral in nature, I don't believe MRI is indicated and will cancel
Consultation
Order
Date of Consultation: 09/05/24
Requesting Provider:
Reason for Consult:
Subjective/Objective
Subjective Data
Date of Service: September 05, 2024
From H&P:
34-year-old male with past medical history signal for bipolar disorder on lithium, Seroquel and olanzapine will presents from home via family with altered mental status.
Patient is arousable but unable to provide any history. He currently lives in a usp with a he apparently is usually by himself. It is noted that he does not shower very often, he is reluctant to take his medications, there is no history of
drug or alcohol use according to facilities about myself. He apparently has been refusing to take his lithium and Seroquel for 2 days but apparently took them this evening. No overdose noted.
EMS reports that he was somnolent and tachycardic on arrival with constricted pupils. He was given Narcan with some improvement in mental status. No other history obtainable.
Patient unable to provide any other history
Objective Data
Vital Signs
Temp Pulse Resp BP Pulse Ox
36.6 C 79 22 159/115 99
09/05/24 07:58 09/05/24 07:00 09/05/24 07:00 09/05/24 06:00 09/05/24 06:10
Lab Results
09/05/24 06:36
09/05/24 06:36
Sodium 140 mmol/L (135-145) 09/05/24 06:36
Potassium 3.7 mmol/L (3.5-5.1) 09/05/24 06:36
BUN 4 mg/dl (9-20) L 09/05/24 06:36
Glucose 96 mg/dl (70-99) 09/05/24 06:36
Calcium 9.3 mg/dl (8.4-10.2) 09/05/24 06:36
LDL Cholesterol, Calc 37 mg/dl 09/05/24 06:36
Vitamin B12 290 pg/ml (239-931) 09/05/24 06:36
Ur Buprenorphine Negative (Negative) 09/04/24 23:43
Patient Allergies
No Known Allergies Allergy (Unverified 08/08/23 11:34)
Physical Exam
-
Awake and alert.
initially not attend or respond, appeared catatonic however then asked for his medication, and asked what his heart rate was.
Medications
-
Active Medications
Generic Name Dose Route Start Last Admin
Trade Name Freq PRN Reason Stop Dose Admin
Acetaminophen 650 mg 09/05/24 00:44
Acetaminophen 650 Mg Rectal Suppository RECTAL 10/03/24 00:43
Q4HPRN PRN
mild pain/YEAGER/temp> 100.4F
Cyanocobalamin 1,000 mcg 09/06/24 08:00
Cyanocobalamin 1,000 Mcg Tablet PO 10/04/24 07:59
DAILY MARIO
Dextrose 12.5 grams 09/05/24 02:00
Dextrose 50% (0.5 Grams/Ml) 50 Ml Syringe IV 10/03/24 01:59
[id number] PRN
hypoglycemia
Protocol
Enoxaparin Sodium 40 mg 09/05/24 18:00
Enoxaparin Sodium 40 Mg/0.4 Ml Syringe SC 10/03/24 17:59
QPM MARIO
Glucagon 1 mg 09/05/24 02:00
Glucagon 1 Mg Vial IM 10/03/24 01:59
PRN PRN
hypoglycemia - no IV access
Protocol
Multivitamins/Minerals 10 ml/ 1,011 mls @ 80 mls/hr 09/05/24 01:15 09/05/24 01:24
Thiamine HCl 100 mg/ Sodium IV 09/05/24 13:53 1,011 mls
Chloride .[id number] ONE Administration
Lactated Ringer's 1,000 mls @ 120 mls/hr 09/05/24 10:00
Lr IV
.Q8H20M MARIO
Insulin Aspart 0 units 09/05/24 01:00 09/05/24 06:02
Insulin Aspart Low Resistance 300 Units/3 Ml Pen.Injctr SC 10/03/24 00:59 Not Given
Q6 MARIO
Protocol
Ondansetron HCl 4 mg 09/05/24 00:44
Ondansetron 4 Mg/2 Ml Vial IV 10/03/24 00:43
Q6HPRN PRN
nausea and vomiting
Sodium Chloride 0 flush 09/04/24 23:00
Sodium Chloride 0.9% (Flush) Syringe IV 10/02/24 22:59
PER PROTOCOL MARIO
Home Medications
�Medication �Instructions �Recorded
lithium carbonate 450 mg 450 mg PO DAILY Mental 09/04/24
tablet,extended release Health/Anxiety
olanzapine 10 mg tablet 10 mg PO DAILY Mental 09/04/24
Health/Anxiety
quetiapine 300 mg tablet 300 mg PO BID Mental Health/Anxiety 09/04/24
--- NOTE | 2024-09-05 11:51 | W.PN.UPDATE ---
Addendum entered and electronically signed by Indu Smith DO 09/05/24 12:37:
Psychiatry follow up. Spoke with ACT team medication provider who states patient did not like taking zyprexa but was more cooperative with seroquel. We discussed plan to restart seroquel at 50mg BID and titrate and stop Zyprexa for now. We will also
hold lithium given CK elevation and also question as to whether he needs this medication. Also, will do a 2 physician 302 for inablity to care for self due to mental illness. Case discussed with primary team physician who is agreeable.
Original Note:
[2024-09-05 12:12] LABS: Fentanyl, Urine Negative (Negative)
[2024-09-05] MEDS: SEROQUEL 50 MG PO ×2 (13:30→20:35)
[2024-09-05] MEDS: LR 1000 IV (13:34)
--- NOTE | 2024-09-05 13:43 | W.PN.HOSP.TC ---
Addendum entered and electronically signed by Bebo Mosquera MD 09/05/24 13:45:
MRI Cancelled
Original Note:
Today's Communication/Plan
-
IVF
MRI
302 filed
Assessment / Plan
Assessment / Plan
34-year-old with encephalopathy. Patient has a history of bipolar disease on lithium, Seroquel, olanzapine
Head CT-no acute changes.
Chest x-ray-no acute changes-reviewed by me
EKG-sinus tachycardia QTc 505.
Awake and prefers not to answer certain questions at times. Selectively mute
Both hands with restless movements almost like pill-rolling
Patient did not let me examine him properly. He is almost paranoid.
There is a nail missing on the third toe on the right foot. Patient states that he clipped his nail and he does not like the nail.
# Encephalopathy/obtundation
Patient was able to maintain airways and had gag reflex
Drug screen negative
However there are drugs which cannot be found on standard drug easgrr-dfb-zs checks for xylazine and dexmedetomidine
Need more history
Rule out seizures
Continue to monitor
MRI of the brain and EEG
TSH normal
Drug screen expanded ordered.
Neurology and psychiatry evaluation requested.
At this point I do not think that the patient is capable of making decisions for him and he seems to poor self-care due to his mental illness. 302 petition filed by me and supported by psychiatry
Patient refused MRI and x-ray today.
# Mild lactic acidosis-resolved
# Mental health fonuruya-iyqdxavzrdaik-ss lithium 450 mg daily, olanzapine 10 mg daily, Seroquel 300 mg twice daily as outpatient as per prior. Need updated med rec.psychiatry to manage medicines
# Electrolyte ghvnkifirredq-yhwcficbhhb-otlxucnb
# Rhabdomyolysis-follow CPK. IV fluids to be continued
# Prolonged QTc-potassium replaced. Repeat EKG ordered
# Hyperglycemia-hemoglobin A1c-5.5
# Low normal B12 -replace
# DVT prophylaxis-Lovenox
# Full code
Discussed with neurology, psychiatry, nursing, case management
Called the number listed on the chart and aide from the [place] answered. She could not give me any direct information about patient's family
Time spent 52 minutes
Anticipated Discharge: 24 - 48 hours
Subjective/Interval History
-
Date of Service: September 05, 2024
Objective Data
-
Labs:
Laboratory Results
09/05/24 09/05/24
05:44 06:36
WBC Cancelled 7.2
Hgb Cancelled 14.7
Hct Cancelled 43.9
Plt Count Cancelled 253
Sodium Cancelled 140
Potassium Cancelled 3.7
Chloride Cancelled 108 H
Carbon Dioxide Cancelled 23
BUN Cancelled 4 L
Creatinine Cancelled 0.7
Glucose Cancelled 96
Calcium Cancelled 9.3
Vital Signs:
Vital Signs
Temp Pulse Resp BP Pulse Ox
97.6 F 76 21 140/119 99
09/05/24 11:48 09/05/24 12:00 09/05/24 12:00 09/05/24 12:00 09/05/24 06:10
I&O
09/04/24 09/05/24 09/06/24
06:59 06:59 06:59
Intake Total 160 / 160
Output Total 1750 / 1750 800 / 800
Balance -1590 / -1590 -800 / -800
[2024-09-05] MEDS: ATIVAN 2 MG PO (14:46)
[2024-09-05] MEDS: SENOKOT 17.2 MG PO (20:35)
[2024-09-06] MEDS: LR IV ×4 (00:25→16:51)
--- NOTE | 2024-09-06 04:30 | PTCARENOTE ---
Received pt from ankit RODRIGUES. Patient with hx schizophrenia and bipolar d/o. Pt pulled out both IVs at the beginning of the shift. Pt able to answer some questions, does not respond to questions he does not want to answer. Agreeable to having his
blood pressure taken once this shift. Refusing hygiene care, lab draws, accuchecks and temps. At one point, patient was agreeable to having a new IV placed, #20 R AC placed by IV team. Pt refusing IVF at this time. Call garcia within reach. Care
ongoing.
--- NOTE | 2024-09-06 07:41 | W.PN.UPDATE ---
Update Note
Progress Note Update
I saw and evaluated the patient. I reviewed the resident�s note and agree with findings and plan as documented in the resident�s note.
Pt seen with RN Jonathan Ty present at bedside. Pt refused physical exam repeating 'I'm ok.'
Gen: NAD, Awake ane alert
Eyes: EOMI, no scleral icterus.
Neck: supple.
Skin: No rashes seen.
Neuro: CN 2-12 intact, non-focal.
Psych: appears anxious and paranoid
CT brain: No acute intracranial abnormality noted.
CXR: No acute cardiopulmonary process.
Altered mental status:
-Acute encephalopathy appears to be ruled out at this time. The patient change in mental status appears to be of psychiatric/behavorial etiology.
-Imaging and laboratory workup unremarkable
-Psychiatry/neuro following. 302 petition completed.
Schizophrenia:
-psych following
-cont Seroquel
Acute rhabdomyolysis:
-Increase LR to 150cc/hr
Other problems:
Mild lactic acidosis, resolved
Hypokalemia, resolved
Prolonged QTc: Repeat EKG
FULL/Lovenox
--- NOTE | 2024-09-06 09:15 | W.PN.HOSP.TC ---
Today's Communication/Plan
-
Continue monitoring patient. Patient to go to psych facility once available
Assessment / Plan
Assessment / Plan
Assessment:
34-year-old male with a past medical history of bipolar disorder, schizophrenia on lithium, Seroquel and olanzapine presented to the [place] [facility] from home via family due to altered mental status. Patient was unable to provide any history but
lives in a mcfp usually by himself. Patient had been off his lithium and Seroquel and recently restarted them again. He was somnolent and tachycardic on presentation to the ED and given some Narcan with some improvement in mental status.
Psych and neuro were consulted and patient was found to have no acute encephalopathy as CT brain was negative. Mental changes appear to be due to psychiatrist/behavioral etiology. 302 petition was completed. Patient continues to be on lactated
Ringer's due to acute rhabdomyolysis. Patient refuses to be examined, have IVs placed or have further testing done.
CT Head W/o Iv Contrast (09/04/2024)
No acute intracranial abnormality noted.
The examination was performed after-hours on an emergency basis, with initial preliminary interpretation provided by [facility].
Plan:
# Altered mental changes secondary to possible encephalopathy versus psychiatry etiology
-Drug screen negative
-Acute encephalopathy ruled out on imaging
-Patient refuses EEG or EKG
-TSH normal
-Psychiatry, neuro following�input appreciated
-Drug panel negative for any illicit drugs
-[address] Mosquera
-No MRI needed as per neuro
-Psych following, probable sending back to facility after evaluation today
# History of mental health disorder�schizophrenia, bipolar
-Continue Seroquel
# Acute rhabdomyolysis
-Patient on lactated Ringer solution
-Rate of fluids increased to 150 cc/h
# Lactic acidosis
-Resolved
# Hypokalemia
-Resolved
-Monitor BMP as possible due to patient's refusal to to get blood drawn
# Prolonged QTc
-Repeat EKG ordered however patient refused
Full code
DVT prophylaxis: Lovenox
Anticipated Discharge: Within 24 hours
Subjective/Interval History
-
Date of Service: September 06, 2024
Patient seen this morning. Was alert and refused any examination saying he's 'okay'. Overnight he pulled out some of his IVs and refused further IV placement. Refused any further imaging like EKG or EEG. Followed by psych and neuro.
Objective Data
-
Labs:
Laboratory Results
09/06/24 09/06/24
06:00 06:58
WBC Pending
Hgb Pending
Hct Pending
Plt Count Pending
Sodium Pending
Potassium Pending
Chloride Pending
Carbon Dioxide Pending
BUN Pending
Creatinine Pending
Glucose Pending
Calcium Pending
Total Bilirubin Pending
AST Pending
ALT Pending
Alkaline Phosphatase Pending
Vital Signs:
Vital Signs
Temp Pulse Resp BP Pulse Ox
97.6 F 80 17 147/109 95
09/05/24 11:48 09/06/24 06:00 09/06/24 06:00 09/05/24 20:51 09/05/24 21:48
I&O
09/05/24 09/06/24 09/07/24
06:59 06:59 06:59
Intake Total 160 / 160
Output Total 1750 / 1750 1500 / 1500 800 / 800
Balance -1590 / -1590 -1500 / -1500 -800 / -800
Review of Systems
-
Unable to obtain full review of systems at this time due to: Other (Patient refusing to communicate)
History Source: Patient
Constitutional: Reports No Symptoms
EENT: Reports No Symptoms Reported
Respiratory: Reports No Symptoms
Cardiac: Reports No Symptoms
Abdomen/GI: Reports No Symptoms
Skin: Reports No Symptoms
Neuro: Reports No Symptoms
Hematologic / Lymphatic: Reports No Symptoms
Psych: Reports Other (Patient refusing to communicate)
Physical Exam
-
General: Comfortable and Other
HEENT: Normocephalic and Atraumatic
Neuro: Awake and Alert
Psych: Other (Refusing examination)
--- NOTE | 2024-09-06 09:16 | PTCARENOTE ---
Patient received from night manager. Patient resting comfortably in bed. AAO, VSS. No significant events noted overnight. No complaints of pain. Patient was made 302, 1:1 being placed in room for patient safety. Patient had removed, now, his
third IV. IV team called to replace, denied them when they got to the room. Patient also refusing to have ECG and EKG done as well as allowing us to perform Accuchecks. Unable to do an assessment as patient is not allowing us to do anything.
Refusing Medications as well. Maintaining a calm and quiet voice when interacting with patient and attempting to word things differently and at different times to see if he is willing to let us doing anything to help him. At this time, no repeat
or further testing ordered. Breakfast at bedside. Call garcia in reach.
[2024-09-06] MEDS: ATIVAN 2 MG PO (10:34)
[2024-09-06] MEDS: SEROQUEL 50 MG PO ×2 (10:34→19:27)
--- NOTE | 2024-09-06 10:38 | PTCARENOTE ---
Patient asked and agreeable to take the AM Seroquel, given.
[2024-09-06] MEDS: VITAMIN B-12 PO (10:40)
[2024-09-06] MEDS: SENOKOT PO (10:40)
--- NOTE | 2024-09-06 11:20 | W.PN.UPDATE ---
Update Note
Progress Note Update
Pt seen, chart reviewed, discussed with nursing staff. Pt resting in bed, alert, giving limited answers, making eye contact. He will only eat/drink from sealed containers. Reportedly pulled a toenail out. No acute agitation. Poor
hygiene/malodorous. Pt did take one dose of Seroquel 50 mg last night, agreed it helped him sleep. Pt now on 2- physician 302 initiated yesterday afternoon 09/05 after 2 pm.
Imp: Schizophrenia, by history, with non-adherence to medications; pt on 302 for inability to care for self
Rec: inpatient psych placement on 302, when medically cleared. Placement should be in the next 1 to 2 days- needs to be well before a potential 303 hearing, which would be due on Friday
continue Seroquel
--- NOTE | 2024-09-06 11:38 | PTCARENOTE ---
Patient removed Tele leads. Asked if I could replace them and patient stated 'No, im fine'. Asked to get a temp and blood pressure as well. Patient still refusing. Will keep trying.
[2024-09-06 11:53] VITALS: BP 125/82
--- NOTE | 2024-09-06 12:16 | CM ---
Patient with Hx Schizophrenia & bipolar disorder with Dx altered mental status, Acute rhabdomyolysis, Prolonged QTc. Patient on 302 hold - Seen by Psych. Per nurse; patient refusing some aspects of care. 1:1 Observation.
Met with Aura Bunch, Plate Printer, [facility] (ph [phone]); she is hoping patient can go to [facility] at discharge. Per Aura the patient will be able to return to his apartment once he is
discharged from inpatient psych.
Spoke with [facility], Admissions [facility] (ph [phone], fax [phone]); they are interested in accepting him however they need to see another creatine kinase/CK level, as yesterday's level was so high. He will be declined if he
refuses repeat labs and if CK is not trending down. Referral sent via Active Fax and 302 manually faxed.
Case discussed with Shirin Peraza & nurse Jonathan.
Additional psych referrals will have no utility at this time until patient agrees to labs.
Plan follow up with [facility] once follow up labwork obtained.
--- NOTE | 2024-09-06 13:55 | PTCARENOTE ---
Continued attempts to have patient wear tele monitor and allow for lab work unsuccessful. Resident aware. Will continue to attempt.
--- NOTE | 2024-09-06 17:43 | W.PN.UPDATE ---
Update Note
Progress Note Update
Patient was seen by his therapist. Therapist relayed that the patient is a multiple pack a day smoker. Will start him on 21mg patch. Currently awaiting placement in patient psych.
--- NOTE | 2024-09-06 17:56 | PTCARENOTE ---
Went to reassess patient. Still refusing everything offered. Nicotine patched ordered, per his therapist he is a multiple a day smoker, refused the nicotine patch. Offered ativan, refused that as well.
Was noted however that patient was digging at this toe nail with a plastic spoon and appeared to have it completely removed. Patient was quick to cover his foot and I was unable to get a good view. A lightly bloodied napkin was found next to him.
No active bleeding noted. Instructed the 1:1 to watch for any body mutilating acts and to inform the RN.
[2024-09-06] MEDS: SENOKOT 17.2 MG PO (19:27)
[2024-09-06 19:48] LABS: Hematocrit 48.9 % (39.0-52.0); Hemoglobin 16.7 g/dL (13.0-18.0); Mean Corp Hgb Conc. 34.2 g/dL (33.0-37.0); Mean Corpuscular Hgb 28.7 pg (27.0-31.0); Mean Corpuscular Volume 84.2 fL (80.0-94.0); Mean Platelet Volume 9.9 fL (7.4-10.4); Platelet Count 260 10^3/uL (130-400); Red Blood Cell Count 5.81 10^6/uL (4.70-6.10); Red Cell Dist. Width 12.7 % (11.5-14.5); White Blood Cell Count 6.1 10^3/uL (4.8-10.8)
[2024-09-06 20:07] LABS: ALT (SGPT) 16 U/L (0-50); AST (SGOT) 42 U/L (17-59); Albumin 4.2 g/dl (3.5-5.0); Alkaline Phosphatase 73 U/L (38-126); Blood Urea Nitrogen 5 mg/dl (9-20); Calcium 9.9 mg/dl (8.4-10.2); Carbon Dioxide 30 mmol/L (22-30); Chloride 101 mmol/L (98-107); Creatine Phosphokinase 1544 U/L (55-170); Estimated Creatinine Clearance 120 ml/min; Glucose 91 mg/dl (70-99); Potassium 4.2 mmol/L (3.5-5.1); Sodium 135 mmol/L (135-145); Total Bilirubin 0.9 mg/dl (0.2-1.3); Total Protein 7.1 g/dl (6.3-8.2); eGFR > 60.00
--- NOTE | 2024-09-06 23:29 | PTCARENOTE ---
Report called to 4W.
[2024-09-06] MEDS: LR 1000 IV (23:30)
--- NOTE | 2024-09-07 00:17 | PTCARENOTE ---
pt transferred to 4W, Rm [id number].
--- NOTE | 2024-09-07 02:30 | PTCARENOTE ---
Received patient from IMU. Patient ambulated from stretcher to bed. Patient agreeable to continue tele monitoring. IV fluids running. Patient appears physically comfortable. Declined vitals and physical assessment. Denied pain. Oriented to room.
Call garcia in reach. 1:1 informed of patient condition prior to entering room.
[2024-09-07] MEDS: LR 1000 IV ×3 (06:08→21:23)
--- NOTE | 2024-09-07 06:43 | W.PN.HOSP.TC ---
Today's Communication/Plan
-
Awaiting word from psych facility if they would take him for inpatient psych
Assessment / Plan
Assessment / Plan
Assessment:
34-year-old male with a past medical history of bipolar disorder, schizophrenia on lithium, Seroquel and olanzapine presented to the [place] ED from home via family due to altered mental status. Patient was unable to provide any history but
lives in a [facility] usually by himself. Patient had been off his lithium and Seroquel and recently restarted them again. He was somnolent and tachycardic on presentation to the ED and given some Narcan with some improvement in mental status.
Psych and neuro were consulted and patient was found to have no acute encephalopathy as CT brain was negative. Mental changes appear to be due to psychiatrist/behavioral etiology. 302 petition was completed. Patient continues to be on lactated
Ringer's due to acute rhabdomyolysis. Patient refuses to be examined, have IVs placed or have further testing done. Awaiting placement of patient into in-patient psych facility. Spoke with patient's sister yesterday and she was aware that patient
is hospitalized and that we are looking to send patient to Inpatient psych on discharge. The facility needs patient's BP reading as well as blood work showing updated Creatinine Kinase levels before they accept him.
CT Head W/o Iv Contrast (09/04/2024)
No acute intracranial abnormality noted.
The examination was performed after-hours on an emergency basis, with initial preliminary interpretation provided by [facility].
Plan:
# Altered mental changes secondary to possible encephalopathy versus psychiatry etiology
-Drug screen negative
-Acute encephalopathy ruled out on imaging
-Patient refuses EEG or EKG
-TSH normal
-Psychiatry, neuro following�input appreciated
-Drug panel negative for any illicit drugs
-[address] Mosquera
-No MRI needed as per neuro
-Psych following, recommended that he go to in-patient psychiatric facility
-[facility] willing to take patient upon updated Creatinine Kinase level, but will be declined otherwise
-Patient downgraded from IMU level yesterday
-Will see if current levels of CK are enough for him to be admitted, as per psych have until Friday to 303
# History of mental health disorder�schizophrenia, bipolar
-Continue Seroquel as allowed by patient
# Acute rhabdomyolysis
-patient refusing IV lines yesterday, but now now allowing
-patient's creatinine kinase levels were increased yet again
-need an updated level of CK before patient is accepted to inpatient psych facility
# Lactic acidosis
-Resolved
# Hypokalemia
-Resolved
-Monitor BMP as possible due
# Prolonged QTc
-Repeat EKG ordered however patient refused
#Tobacco use
-Started on nicotine patches
Full code
DVT prophylaxis: Lovenox
Anticipated Discharge: Within 24 hours
Subjective/Interval History
-
Date of Service: September 07, 2024
Patient on one-to-one surveillance due to recent history of trying to do get his toenail. Bit more talkative today but still would not let me examine him. Said he wants to go back to where he came from. Did not want to get more blood drawn today.
Objective Data
-
Labs:
Laboratory Results
09/06/24 09/06/24 09/06/24
06:00 06:58 19:41
WBC Cancelled 6.1
Hgb Cancelled 16.7
Hct Cancelled 48.9
Plt Count Cancelled 260
Sodium Cancelled 135
Potassium Cancelled 4.2
Chloride Cancelled 101
Carbon Dioxide Cancelled 30
BUN Cancelled 5 L
Creatinine Cancelled 0.8
Glucose Cancelled 91
Calcium Cancelled 9.9
Total Bilirubin Cancelled 0.9
AST Cancelled 42
ALT Cancelled 16
Alkaline Phosphatase Cancelled 73
09/07/24
05:04
WBC Cancelled
Hgb Cancelled
Hct Cancelled
Plt Count Cancelled
Sodium Cancelled
Potassium Cancelled
Chloride Cancelled
Carbon Dioxide Cancelled
BUN Cancelled
Creatinine Cancelled
Glucose Cancelled
Calcium Cancelled
Total Bilirubin
AST
ALT
Alkaline Phosphatase
Vital Signs:
Vital Signs
Temp Pulse Resp BP Pulse Ox
97.6 F 86 16 125/82 94
09/05/24 11:48 09/06/24 11:33 09/06/24 11:33 09/06/24 11:53 09/06/24 13:13
I&O
09/05/24 09/06/24 09/07/24
06:59 06:59 06:59
Intake Total 160 / 160 2300 / 2300
Output Total 1750 / 1750 1500 / 1500 2900 / 2900
Balance -1590 / -1590 -1500 / -1500 -600 / -600
Review of Systems
-
Unable to obtain full review of systems at this time due to: Other (Patient refusing to communicate)
History Source: Patient
Constitutional: Reports No Symptoms
EENT: Reports No Symptoms Reported
Respiratory: Reports No Symptoms
Cardiac: Reports No Symptoms
Abdomen/GI: Reports No Symptoms
Skin: Reports No Symptoms
Neuro: Reports No Symptoms
Hematologic / Lymphatic: Reports No Symptoms
Psych: Reports Other (Patient communicative today but does not want to talk too much)
Physical Exam
-
General: Comfortable and Other
HEENT: Normocephalic and Atraumatic
Neuro: Awake and Alert
Psych: Other (Refusing examination)
Data Reviewed
-
Labs: Labs Reviewed by me, Discussed with Physician, Discussed with Nurse and Discussed with Patient
[2024-09-07 07:45] VITALS: BP 139/96
--- NOTE | 2024-09-07 09:10 | W.PN.UPDATE ---
Addendum entered and electronically signed by Alessandro Chu MD 09/07/24 13:52:
Corrections:
Pt seen with [facility] staff member and 1:1 present in the room. Pt refused physical exam. Pt only states that he's 'ok.'
Gen: remains NAD, Awake and alert
Eyes: EOMI, no scleral icterus.
Neck: supple.
Skin: No rashes seen.
Neuro: remains CN 2-12 intact, non-focal.
Psych: continue to appear anxious and paranoid
Original Note:
Update Note
Progress Note Update
I saw and evaluated the patient. I reviewed the resident�s note and agree with findings and plan as documented in the resident�s note.
Pt seen with RAVI Ty present at bedside. Pt refused physical exam repeating 'I'm ok.'
Gen: NAD, Awake ane alert
Eyes: EOMI, no scleral icterus.
Neck: supple.
Skin: No rashes seen.
Neuro: CN 2-12 intact, non-focal.
Psych: appears anxious and paranoid
CT brain: No acute intracranial abnormality noted.
CXR: No acute cardiopulmonary process.
Altered mental status:
-Acute encephalopathy has been ruled out at this time. The patient's change in mental status appears to be of psychiatric/behavioral etiology.
-Imaging and laboratory workup unremarkable
-Psychiatry/neuro following. 302 petition completed.
Schizophrenia:
-psych following
-cont Seroquel
Acute rhabdomyolysis:
-Increase LR to 150cc/hr
Other problems:
Tobacco abuse disorder: cont Nicotine patch
Mild lactic acidosis, resolved
Hypokalemia, resolved
Prolonged QTc: Repeat EKG
FULL/Lovenox
--- NOTE | 2024-09-07 09:43 | CM ---
Addendum entered by Julia Palma 09/07/24 16:54:
Labs were completed today and faxed to [facility], case resolution specialist reached out to Glo to make her aware that labs were being faxed today.
Original Note:
Chart reviewed and patient is on a 2 physician 302, 09/05/24, plan is for placement hopefully at [facility] however they are requesting updated labs and case resolution specialist will await updated labs. publishing manager reached out to nursing to see if nursing were
able to complete labs today.
Plan; Inpatient placement hopefully at [facility] where patient has been in the past, but unless lab work is completed case resolution specialist will be unable to place patient.
[2024-09-07] MEDS: SEROQUEL 50 MG PO (10:59)
[2024-09-07] MEDS: SENOKOT PO ×3 (11:45→21:37)
[2024-09-07] MEDS: VITAMIN B-12 PO (11:45)
--- NOTE | 2024-09-07 12:41 | W.PN.UPDATE ---
Update Note
Progress Note Update
Pt seen, reviewed with nursing staff, discussed with 1:1. Pt alert, calm, resting in bed, watching TV. Pt makes eye contact, but will not answer any questions. Pt was advised that we need to repeat blood work to clear him for psychiatric
placement on the 302. Reviewed with nursing staff, Briquette Molder- pt was approach by nursing staff, Dr Chu and the Briquette Molder earlier, but refuses to have his blood drawn, gives irrational responses. Pt is eating per 1:1 staff. He is
not agitated or threatening; has chronic neglect of hygiene. Pt taking Seroquel 50 mg BID with no apparent side effects.
Imp: Schizophrenia, by history, with non-adherence to medications; pt on 302 for inability to care for self
Rec: inpatient psych placement on 302, when medically cleared. Will increase Seroquel
will follow
--- NOTE | 2024-09-07 15:09 | PTCARENOTE ---
Patient has been refusing ordered blood work today. Per Dr. Duque, Dr. Paiz reached out to him about restraining the patient in order to get the necessary blood work drawn so there can be continued care and psych placement of the patient. I
reached out to Risk Management. Mary Coronado discussed with Dao Arteaga. Patient is a 302 and we can do the blood draw without the patient's permission. We can ask for security to assist nursing with restraining the patient to obtain the bloodwork.
Primary RN, Dr. Chu and Dr. Duque made aware of Risk Managements direction.
--- NOTE | 2024-09-07 15:55 | PTCARENOTE ---
Blood draw for ordered labs obtained (with patient permission) by Carrie Neff RN with patient sitter bedside for patient support. No restraints or security assist required.
[2024-09-07 16:33] LABS: Blood Urea Nitrogen 6 mg/dl (9-20); Calcium 9.5 mg/dl (8.4-10.2); Carbon Dioxide 32 mmol/L (22-30); Chloride 103 mmol/L (98-107); Creatine Phosphokinase 1156 U/L (55-170); Estimated Creatinine Clearance 120 ml/min; Glucose 81 mg/dl (70-99); Sodium 138 mmol/L (135-145); eGFR > 60.00
[2024-09-07 19:42] VITALS: BP 156/101
[2024-09-07] MEDS: SEROQUEL 100 MG PO (21:23)
[2024-09-07 23:31] VITALS: BP 131/89
--- NOTE | 2024-09-08 04:23 | DOWNTIME ---
There was a [employer] Client Asl Interpreter Downtime on 09/08/2024 from 0100 to 09/09/2023 at 0420 . Downtime documentation of patient's care, including medication administrations, has been reconciled in the electronic record per guidelines. Refer to the
patient's paper chart under the miscellaneous tab to see printed paper medication records and downtime forms.
--- NOTE | 2024-09-08 04:26 | PTCARENOTE ---
Patient continues to refuse care- telemetry monitoring, nursing assessment and medications (pt did agree to 2200 Seroquel).
Vitals > @ 2331 Pt refused temperature and pox. HR 112 BP 131/89
1:[address]
[2024-09-08] MEDS: LR 1000 IV (04:30)
[2024-09-08 07:00] VITALS: BP 151/99
--- NOTE | 2024-09-08 08:46 | CM ---
Addendum entered by Julia Palma 09/08/24 17:00:
Per admissions at [facility] they do not require report, nursing are aware, patient is a 302, original 302 paperwork will transfer with patient.
Addendum entered by Julia Palma 09/08/24 14:55:
Patient has been accepted at [place] today, Auth for 5 days with Rere Toussaint at [facility] [phone]. Auth provided to Lily in admissions at [facility].
Addendum entered by Julia Palma 09/08/24 09:45:
[facility] have denied patient.
Addendum entered by Julia Palma 09/08/24 09:12:
telecommunications manager received a call from [facility] and they are requesting updated labs, nursing made aware.
Original Note:
telecommunications manager reviewed patient's chart and spoke with admissions at [facility] this morning and per admissions they will need a new referral as they discarded previous referral. All clinicals faxed to [facility] this morning and
will await determination from [facility].
Plan; To follow up with admissions at [facility]
--- NOTE | 2024-09-08 09:09 | W.PN.HOSP.TC ---
Addendum entered and electronically signed by Shirin Dash MD, Resident 09/08/24 12:52:
Patient is stable for discharge. Awaiting placement into facility.
Original Note:
Today's Communication/Plan
-
Awaiting discharge to inpatient psych facility
Assessment / Plan
Assessment / Plan
Assessment:
34-year-old male with a past medical history of bipolar disorder, schizophrenia on lithium, Seroquel and olanzapine presented to the [place] ED from home via family due to altered mental status. Patient was unable to provide any history but
lives in a nursing home usually by himself. Patient had been off his lithium and Seroquel and recently restarted them again. He was somnolent and tachycardic on presentation to the ED and given some Narcan with some improvement in mental status.
Psych and neuro were consulted and patient was found to have no acute encephalopathy as CT brain was negative. Mental changes appear to be due to psychiatrist/behavioral etiology. 302 petition was completed. Patient continues to be on lactated
Ringer's due to acute rhabdomyolysis. Patient refuses to be examined, have IVs placed or have further testing done. Awaiting placement of patient into in-patient psych facility. Spoke with patient's sister yesterday and she was aware that patient
is hospitalized and that we are looking to send patient to Inpatient psych on discharge. The facility needs patient's BP reading as well as blood work showing updated Creatinine Kinase levels before they accept him.
CT Head W/o Iv Contrast (09/04/2024)
No acute intracranial abnormality noted.
The examination was performed after-hours on an emergency basis, with initial preliminary interpretation provided by [facility].
Plan:
# Altered mental changes secondary to possible encephalopathy versus psychiatry etiology
-Drug screen negative
-Acute encephalopathy ruled out on imaging
-Patient refuses EEG or EKG
-TSH normal
-Psychiatry, neuro following�input appreciated
-Drug panel negative for any illicit drugs
-[address] Mosquera
-No MRI needed as per neuro
-Psych following, recommended that he go to in-patient psychiatric facility
-[facility] willing to take patient upon updated Creatinine Kinase level, but will be declined otherwise
-Will see if current levels of CK are enough for him to be admitted, as per psych have until Friday to 303
# History of mental health disorder�schizophrenia, bipolar
-Continue Seroquel as allowed by patient
# Acute rhabdomyolysis
-IV fluids were discontinued
-patient's creatinine kinase levels trending down
-need an updated level of CK before patient is accepted to inpatient psych facility
# Lactic acidosis
-Resolved
# Hypokalemia
-Resolved
-Monitor BMP as possible due
# Prolonged QTc
-Repeat EKG ordered however patient refused
#Tobacco use
-Started on nicotine patches
Full code
DVT prophylaxis: Lovenox
Anticipated Discharge: Today
Subjective/Interval History
-
Date of Service: September 08, 2024
Patient again refused any medical examination today, saying he is good. Awaiting discharge to inpatient psych facility.
Objective Data
-
Vital Signs:
Vital Signs
Temp Pulse Resp BP Pulse Ox
97.6 F 78 20 151/99 94
09/05/24 11:48 09/08/24 07:00 09/08/24 07:00 09/08/24 07:00 09/06/24 13:13
I&O
09/07/24 09/08/24 09/09/24
06:59 06:59 06:59
Intake Total 2780 / 2780 3120 / 3120 250 / 250
Output Total 2900 / 2900 1275 / 1275 1000 / 1000
Balance -120 / -120 1845 / 1845 -750 / -750
Review of Systems
-
Unable to obtain full review of systems at this time due to: Other (Patient unwilling to share history/communicate)
History Source: Patient
Constitutional: Reports No Symptoms
Physical Exam
-
General: No Apparent Distress and Comfortable
HEENT: Normocephalic and Atraumatic
Skin: Warm
Neuro: Awake and Alert
Psych: Other (Refusing examination)
Data Reviewed
-
Labs: Labs Reviewed by me, Discussed with Physician, Discussed with Nurse and Discussed with Patient
[2024-09-08] MEDS: SENOKOT PO ×2 (10:43→20:08)
[2024-09-08] MEDS: VITAMIN B-12 1000 MCG PO (10:43)
[2024-09-08] MEDS: SEROQUEL 50 MG PO (10:43)
[2024-09-08 11:00] VITALS: BP 145/100
--- NOTE | 2024-09-08 11:35 | PTCARENOTE ---
Patient refused nursing assessment.
--- NOTE | 2024-09-08 11:44 | W.PN.UPDATE ---
Update Note
Progress Note Update
patient seen chart reviewed. spoke with dr arias. one to one present in room. mr mederos is clearly paranoid . he also exhibits great paucity of thought and expression. he constantly is massaging his head and hairs are evident all over the bed.
he did not otherwise appear particularly unkempt. he was reluctant to provide me with any information although i knew the answers to the ? i asked. he so far has not been accepted by any psych facility. have increased seroquel to 200 mg q hs
along with 50 mg bid. noted elevated cpk. will speak with his out pt psych later today.
--- NOTE | 2024-09-08 12:00 | PTCARENOTE ---
Patient refused lab draw.
--- NOTE | 2024-09-08 12:05 | W.PN.UPDATE ---
Addendum entered and electronically signed by Alessandro Chu MD 09/08/24 15:28:
Total time spent on d/c = 36 min. This included today's physical exam, progress note, review of laboratory and diagnostic data, preparation of discharge documents and prescriptions, and discussions about the pt's hospital course and discharge plan
with the patient and other expert medical writer involved in the patient's care.
Original Note:
Update Note
Progress Note Update
I saw and evaluated the patient. I reviewed the resident�s note and agree with findings and plan as documented in the resident�s note.
Patient seen with RAVI Nieves present at bedside:
Gen: continues to remain NAD, Awake and alert
Eyes: EOMI, no scleral icterus.
Neck: supple.
Skin: No rashes seen.
Neuro: continues to remain CN 2-12 intact, non-focal.
Psych: continue to appear anxious and paranoid but slightly less so than yesterday
CT brain: No acute intracranial abnormality noted.
CXR: No acute cardiopulmonary process.
Altered mental status:
-Acute encephalopathy has been ruled out at this time. The patient's change in mental status appears to be of psychiatric/behavioral etiology.
-Imaging and laboratory workup unremarkable
-Psychiatry/neuro following. 302 petition completed.
Schizophrenia:
-psych following
-cont Seroquel
Acute rhabdomyolysis:
-CPK has improved for 1156 on 09/07/24. No TETO. At this point the current CPK value is of no concern and this should not inhibit/delay transfer to psych facility
-cont IVFs for now
Other problems:
Tobacco abuse disorder: cont Nicotine patch
Mild lactic acidosis, resolved
Hypokalemia, resolved
Prolonged QTc: Repeat EKG
FULL/Lovenox
Medically cleared for discharge to inpatient psychiatry when bed available. Case management aware.
--- NOTE | 2024-09-08 15:01 | W.DCSUMMARY ---
Discharge Summary
Discharge Data
Date of Admission: 09/04/24
Date of Discharge: 09/08/24
-
Pending Results: No
Hospital Course
Discharging Physician : Dr. Shirin Dash, Dr. Alessandro Chu
�
Disposition�:�Psych Facility ([place])
�
Primary�care�physician�: Unknown
�
Principal�Discharge�Diagnosis�:�Altered mental changes secondary to possible encephalopathy versus psychiatry etiology
�
Chronic�Discharge�Diagnosis:�
Schizophrenia
Acute rhabdomyolysis
Hypokalemia
Prolonged QTc
Mild lactic acidosis
Hospital�Course�:��
34-year-old male with a past medical history of bipolar disorder, schizophrenia on lithium, Seroquel and olanzapine presented to the [place] ED [facility] 09/04/[facility]24 from [facility] family due to altered mental status. Patient was unable to provide
any history but lives in a [facility] usually by himself. Patient had been off his lithium and Seroquel and recently restarted them again. He was somnolent and tachycardic on presentation to the ED and given some Narcan with some improvement in
mental status. Psych and neuro were consulted and patient was found to have no acute encephalopathy as CT brain was negative. MRI and EEG were recommended by neuro. Patient was found to have low vitamin B12 levels along with prolonged QTc on EKG.
Both potassium and vitamin B12 replenished. Patient refused treatment including MRI and x-rays and also refused physical examination. Due to patient being incapable of making decisions for himself, a 302 petition was completed. Was very
difficult to get lab draws for the patient because he refused any IVs. As patient continued to be on Seroquel, he became more accommodating and allowed some blood draws occasionally. Patient was found to have elevated creatinine kinase levels so
was started on lactated Ringer's due to his acute rhabdomyolysis. Patient refuses to be examined, have IVs placed or have further testing done. Patient was evaluated by psych and it was determined that he should be placed into an inpatient psych
facility. Patient has a tobacco use disorder very smokes several packs a day. This was found out about later on in this admission, and patient was placed on nicotine patches. Patient was observed for several days as different facilities were
contacted whether they would take him. Patient continued to be on Seroquel with his latest dose change being that he will take 200 mg of Seroquel at night along with 50 mg in the morning and 50 mg in the evening. Patient was finally approved by
[place] psych facility and was discharged from the hospital as he was medically cleared.
Important�imaging�findings�:��
CT Head W/o Iv Contrast (09/04/2024):
No acute intracranial abnormality noted.
EKG (09/04/2024):
NARROW QRS TACHYCARDIA c/w sinus tachycardia
SINUS TACHYCARDIA
NONSPECIFIC ST ABNORMALITY
ABNORMAL ECG
NO PREVIOUS ECGS AVAILABLE
Chest X-ray (09/04/2024):
No acute cardiopulmonary process.
Procedure�findings�:��None
�
Discharge Plan
-
Patient Disposition: Psych Facility
Discharge Diagnosis/Procedures: Altered mental changes secondary to possible encephalopathy versus psychiatry etiology
Schizophrenia
Acute rhabdomyolysis
Hypokalemia
Prolonged QTc
Mild lactic acidosis
Condition: Fair
Diet: Regular
Activity: No restrictions
Driving Restrictions: As prior to admission
Bathing Restrictions: None
Referrals:
UNKNOWN - PT DOES,NOT KNOW [Family Provider] -
Additional Discharge Medication Instructions: Take Quetiapine 200mg at night along with 50mg in the morning and the afternoon
Prescriptions:
New
nicotine 21 mg/24 hr Patch 24 Hour
21 mg transdermal DAILY Qty: 14 0RF
quetiapine [Seroquel] 200 mg tablet
200 mg PO DAILY Qty: 30 0RF
quetiapine 50 mg tablet
50 mg PO BID Qty: 60 0RF
Discontinued
quetiapine 300 mg tablet
300 mg PO BID
olanzapine 10 mg tablet
10 mg PO DAILY
lithium carbonate 450 mg tablet extended release
450 mg PO DAILY
Discharge Date and Time
Print Language: FRENCH
--- NOTE | 2024-09-08 20:08 | PTCARENOTE ---
Pt refuses to let vital signs be taken.
[2024-09-08 20:21] VITALS: BP 150/90
--- NOTE | 2024-09-08 20:22 | PTCARENOTE ---
Pt now allows BP and HR to be checked but refuses temperature, either orally or axillary to be taken. Pt appears fearful and rigid throughout encounter.
--- NOTE | 2024-09-08 20:55 | PTCARENOTE ---
Pt d/c'd to [facility] via ambulance at this time.
== END 2024-09-08 20:57 | DRG 558 ==
LOC: 4 WEST ACU 23:54
PROVIDERS: Hospitalist; ADMITTING PHYSICIAN Internal Medicine; ATTENDING PHYSICIAN Internal Medicine; CONSULT PHYSICIAN Psychiatry & Neurology Clinical Neurophysiology; CONSULT PHYSICIAN Psychiatry & Neurology Psychiatry; EMERGENCY PHYSICIAN Emergency Medicine
DX: M62.82 Rhabdomyolysis (principal); G93.40 Encephalopathy, unspecified; E87.20 Acidosis, unspecified; F20.9 Schizophrenia, unspecified; E87.6 Hypokalemia; R94.31 Abnormal electrocardiogram [ECG] [EKG]; F17.210 Nicotine dependence, cigarettes, uncomplicated; Z91.148 Patient's other noncompliance with medication regimen for other reason; R73.9 Hyperglycemia, unspecified
CPT/HCPCS: 70450; 71045; 80048; 80053; 80061; 80143; 80178; 80179; 80306; 80307; 81003; 82077; 82140; 82550; 82607; 82962; 83036; 83605; 83735; 84443; 85025; 85027; 85379; 87040; 87070; 87502; 87811; 93005; 96361; 96374; 96375; 99291